=== PATIENT | male | born 1935 | race Caucasian/White ===

== ENCOUNTER 2018-09-15 20:19 | Inpatient (IN) | payer MEDICARE ==
[~2018-09-15] VITALS: Ht 177.8 cm; Wt 97.5 kg
--- NOTE | ~2018-09-15 | EKG ---
[place], [place] ELECTROCARDIOGRAM REPORT NAME: MAHESH PFEIFFER UNIT #: [id number] ROOM: 515 DOCTOR: CLAUDETTEANY DRAFT REPORT BIRTHDATE: [birth year] [facility] Test Date: 2018-09-15 Test Time: 21:09:06 Pat Name: MAHESH PFEIFFER Department: Room: [facility] Gender: M Service Mechanic: Melania Garcia : 1935 Requested By: EZRA NOLASCO Order Number: [id number] Reading MD: Nas Sanchez MD Measurements Intervals [place] Rate: 80 P: 47 OR: 159 QRS: -45 QRSD: 115 T: 53 QT: 456 QTc: 527 Interpretive Statements Sinus rhythm Incomplete right bundle branch block Electronically Signed On 09-16-2018 7:20:55 PST by Nas Sanchez MD CM:EKGRPT:ELECTROCARDIOGRAM REPORT [id number] EZRA NOLASCO MD EPIPHANY DRAFT REPORT EZRA NOLASCO MD
[2018-09-15 20:20] VITALS: BP 133/70
[2018-09-15] MEDS ORDERED: ASPIRIN CHEWABL81 MG PO (20:21)
[2018-09-15] MEDS ORDERED: TENORMIN100 MG PO (20:22)
[2018-09-15] MEDS ORDERED: PACERONE200 MG PO (20:22)
[2018-09-15] MEDS ORDERED: GLUCOPHAGE500 M1 PO (20:24)
[2018-09-15] MEDS ORDERED: MULTIVITAMINS1 EAC5 PO (20:25)
[2018-09-15] MEDS ORDERED: CYMBALTA60 MG PO (20:26)
[2018-09-15] MEDS ORDERED: REQUIP2 MG PO (20:26)
[2018-09-15] MEDS ORDERED: ALENDRONATE SOD70 M1 PO (20:27)
[2018-09-15 21:07] VITALS: BP 133/67
[2018-09-15 21:16] LABS: BASO % 0.2 % (0.0-1.0); HEMATOCRIT 44.1 % (42.0-52.0); HEMOGLOBIN 14.9 g/dl (14.0-18.0); LYMPH # 0.4 10*3/uL (1.3-4.4); LYMPH % 3.1 % (27.0-41.0); MEAN CELL VOLUME 90.4 fl (80.0-94.0); MEAN CORPUSCULAR HGB 30.5 pg (27.0-31.0); MEAN CORPUSCULAR HGB CONC 33.8 g/dl (33.0-37.0); MEAN PLATELET VOLUME 11.1 fl (9.6-12.3); MONO # 0.9 10*3/uL (0.1-1.0); MONO % 6.7 % (3.0-9.0); NEUT # 11.3 10*3/uL (2.3-7.9); NEUT % 89.1 % (47.0-73.0); PLATELET COUNT AUTOMATED 360 10*3/uL (130-400); RED BLOOD COUNT 4.88 10*6/uL (4.50-5.90); RED CELL DISTRI WIDTH 14.5 % (0-14.5); WHITE BLOOD COUNT 12.7 10*3/uL (4.8-10.8)
[2018-09-15 21:25] LABS: ACT PARTIAL THROMBO TIME 25.6 SECONDS (20.8-31.5); INTERNATIONAL NORM RATIO 1.1 (2.0-3.5)
[2018-09-15 21:32] LABS: ALBUMIN 3.7 gm/dl (3.1-4.5); ALKALINE PHOSPHATASE 90 U/L (45-117); BUN 25 mg/dl (7-24); CHLORIDE 106 mmol/L (98-107); LIPASE 138 U/L (73-393); POTASSIUM 4.4 mmol/L (3.5-5.1); SGOT/AST 48 IU/L (3-35); SGPT/ALT 31 U/L (12-78); SODIUM 139 mmol/L (136-145); TOTAL PROTEIN 7.7 gm/dL (6.4-8.2)
[2018-09-15 21:35] LABS: TROPONIN I < 0.015 ng/ml (<0.045)
[2018-09-15 22:14] VITALS: BP 129/71
--- NOTE | 2018-09-15 22:17 | NUR ---
PATIENT STATES THAT HE REMAINS UNABLE TO PROVIDE A URINE SAMPLE AT THIS TIME
--- NOTE | 2018-09-15 23:14 | NUR ---
PT TO CAT SCAN AT THIS TIME
[2018-09-15 23:45] VITALS: BP 134/75
[2018-09-16] VITALS (7 sets, daily range): BP systolic 98–177; BP diastolic 50–84
--- NOTE | 2018-09-16 00:18 | NUR ---
A 83, admitted to , under the services of LYNDA Vázquez DO with a diagnosis of GASTROENTERITIS, DEHYDRATION. Chief complaint is NAUSEA/VOMITING. Patient arrived via bed from ER. Monitor applied. Initial assessment completed. Vital signs taken and recorded. LYNDA VÁZQUEZ DO notified of admission to the unit. Orders received. See assessment for past medical history, medications and allergies. Patient and/or family oriented to unit. [facility] visitation policy reviewed. Clothing/patient valuable form completed. WARD BURKS
[2018-09-16] MEDS ORDERED: LIPITOR40 MG PO (01:58)
--- NOTE | 2018-09-16 05:38 | NUR ---
PT RESTING IN BED, RESPIRATIONS EASY AND UNLABORED ON ROOM AIR. NO S/S OF DISTRESS NOTED. PT DENIES NAUSEA/VOMITING/DIARRHEA AT THIS TIME. WILL CONTINUE TO MONITOR. SAFETY MEASURES IN PLACE. CALL LIGHT IN REACH.
[2018-09-16 06:53] LABS: BASO % 0.2 % (0.0-1.0); EOS % 0.4 % (1.0-4.0); HEMATOCRIT 38.6 % (42.0-52.0); LYMPH # 1.3 10*3/uL (1.3-4.4); LYMPH % 15.3 % (27.0-41.0); MEAN CELL VOLUME 92.3 fl (80.0-94.0); MEAN CORPUSCULAR HGB 29.7 pg (27.0-31.0); MEAN CORPUSCULAR HGB CONC 32.1 g/dl (33.0-37.0); MEAN PLATELET VOLUME 9.9 fl (9.6-12.3); MONO % 11.9 % (3.0-9.0); NEUT % 71.6 % (47.0-73.0); PLATELET COUNT AUTOMATED 252 10*3/uL (130-400); RED BLOOD COUNT 4.18 10*6/uL (4.50-5.90); RED CELL DISTRI WIDTH 14.5 % (0-14.5); WHITE BLOOD COUNT 8.4 10*3/uL (4.8-10.8)
[2018-09-16 07:02] LABS: HEMOGLOBIN 12.4 g/dl (14.0-18.0)
[2018-09-16 07:09] LABS: BUN 26 mg/dl (7-24); CHLORIDE 109 mmol/L (98-107); CHOLESTEROL 112 mg/dL (<200); CREATININE 0.95 mg/dL (0.70-1.30); FREE T4 1.38 ng/dl (0.76-1.46); HDL CHOLESTEROL 40 mg/dl (40-60); LDL CHOLESTEROL 55 mg/dL (9-159); PHOSPHOROUS 3.2 mg/dL (2.5-4.9); SODIUM 141 mmol/L (136-145); TRIGLYCERIDES 87 mg/dl (<150); VLDL CHOLESTEROL 17 mg/dL (6-40)
[2018-09-16 07:27] LABS: POTASSIUM 3.3 mmol/L (3.5-5.1); THYROID STIM HORMONE (HS) 0.657 uIU/ml (0.358-4.75)
[2018-09-16 08:48] LABS: VITAMIN D, 25-HYDROXY 38.2 ng/mL (30-100)
--- NOTE | 2018-09-16 10:59 | NUR ---
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 Patient states lives at [facility] with [facility]. There are NO steps in the home. Physician: MILKA Pharmacy: Home health services: NONE Patient's level of ADLs: MINIMAL ASSIST Patient has working utilities: YES DME: NONE Follow-up physician's appointment after d/c: WILL BE MADE BY HOSPITALIST NURSE DIRECTOR ON DISCHARGE Does patient want to access PORTAL?: NO Discharge plan PT LIVES IN [facility] AT [facility]., HAS A LIFELINE. PT AND DAUGHTER STATE PT DOES WELL WITH ADLS AND EVEN COOKS FOR HIMSELF SOMETIMES AND GOES TO DINING ROOM OTHER TIMES. PLANS ARE TO RETURN ON DISCHARGE. DENIES ANY NEEDS AT THIS TIME. WILL CONTINUE TO FOLLOW. [facility]
[2018-09-16 18:41] LABS: BILIRUBIN NEGATIVE (NEGATIVE); BLOOD NEGATIVE (NEGATIVE); CLARITY CLEAR (CLEAR); COLOR YELLOW (YELLOW); GLUCOSE NEGATIVE (NEGATIVE); KETONE NEGATIVE (NEGATIVE); LEUKO ESTERASE NEGATIVE (NEGATIVE); NITRITE NEGATIVE (NEGATIVE); UROBILINOGEN 0.2 E.U./dl (0.2-1.0)
--- NOTE | 2018-09-16 18:43 | NUR ---
PT RESTING IN BED, NO DISTRESS NOTED FAMILY AT BEDSIDE WILL MONITOR
[2018-09-16 18:51] LABS: BACTERIA TRACE; EPITHELIAL CELLS 0-2; MUCOUS TRACE; RBC 0-2 rbc/hpf (0-2)
--- NOTE | 2018-09-16 20:00 | NUR ---
PATIENT IS RESTING IN BED WITH EASY AND REGULAR RESPERS ON ROOM AIR. ASSESSMENT IS COMPLETE AND BSG CHECKED WITH A RESULT OF 89. PATIENT TOLERATED WELL, AND HAS NO C/O OR S/S OF DISTRESS NOTED. BED IS LOW, LOCKED, ALARMED, AND CALL LIGHT IS WITHIN REACH. SEE SHIFT ASSESSMENT.
[2018-09-17] VITALS: BP 170/86
[2018-09-17 05:25] VITALS: BP 180/90
--- NOTE | 2018-09-17 05:30 | NUR ---
CALLED DR. GARZA PERTAINING TO PT'S ELEVATED BP. DR. GARZA TO PUT ORDER IN FOR BP MEDICATION FOR PATIENT.
--- NOTE | 2018-09-17 06:00 | NUR ---
MEDICATED WITH APRESOLINE SLOW IV PUSH PER M.D. ORDERS FOR ELEVATED BP. PT. VOICES NO C/O AT THIS TIME. ASYMPTOMATIC. CALL LIGHT WITHIN REACH.
[2018-09-17 07:15] LABS: CHLORIDE 107 mmol/L (98-107); POTASSIUM 3.8 mmol/L (3.5-5.1); SODIUM 140 mmol/L (136-145)
[2018-09-17 07:26] LABS: CREATININE 0.74 mg/dL (0.70-1.30)
[2018-09-17 07:28] LABS: BUN 14 mg/dl (7-24)
[2018-09-17 08:00] VITALS: BP 167/89
[2018-09-17] MEDS ORDERED: LISINOPRIL5 MG PO (10:24)
--- NOTE | 2018-09-17 11:35 | NUR ---
Discharge instructions reviewed with patient/family. Patient receptive and verbalizes understanding. Follow-up care arranged. Written instructions given to patient/family. EORS DINH
[2018-12-11] MEDS ORDERED: EFFEXOR XR75 M1 PO (03:24)
[2018-12-11] MEDS ORDERED: VITAMIN B121000 MC1 PO (03:24)
[2019-02-21] MEDS ORDERED: DONEPEZIL HYDROC5 MG PO (18:31)
[2019-02-21] MEDS ORDERED: LOPRESSOR25 MG PO (18:36)
[2019-02-21] MEDS ORDERED: [UNRECOGNIZED DRUG - CODE] PO (18:38)
[2019-02-22] MEDS ORDERED: CYMBALTA60 MG PO (08:50)
[2019-02-22] MEDS ORDERED: REQUIP XL2 MG PO (08:53)
[2019-02-22] MEDS ORDERED: TENORMIN100 MG PO (08:59)
[2019-02-25] MEDS ORDERED: SINEMET 25-1001 EACH PO (12:25)
[2019-02-25] MEDS ORDERED: EFFEXOR XR37.5 M1 PO (12:25)
[2019-02-25] MEDS ORDERED: WALKER (12:25)
[2019-02-25] MEDS ORDERED: METOPROLOL TART50 M1 PO (12:25)
== END 2018-09-17 11:34 | disposition home or self-care (01) | DRG 872 ==
LOC: ED 20:19 → 5E 22:57 → EDHOLD 22:57 → 5E 23:27
PROVIDERS: Emergency Medicine Emergency Medical Services; Internal Medicine; Student in an Organized Health Care Education/Training Program; ADMIT Internal Medicine
DX: A41.9 Sepsis, unspecified organism (principal); K52.9 Noninfective gastroenteritis and colitis, unspecified; E86.0 Dehydration; R06.82 Tachypnea, not elsewhere classified; E11.65 Type 2 diabetes mellitus with hyperglycemia; I48.0 Paroxysmal atrial fibrillation; I10 Essential (primary) hypertension; I95.1 Orthostatic hypotension; R29.6 Repeated falls; Z88.1 Allergy status to other antibiotic agents; Z95.0 Presence of cardiac pacemaker; Z79.899 Other long term (current) drug therapy; Z79.82 Long term (current) use of aspirin

== ENCOUNTER → 2018-09-29 | Outpatient (CLI) | payer MEDICARE ==
[~2018-09-29] MED LIST: ALENDRONATE SOD70 M1 PO; ASPIRIN CHEWABL81 MG PO; CYMBALTA60 MG PO; GLUCOPHAGE500 M1 PO; LIPITOR40 MG PO; LISINOPRIL5 MG PO; MULTIVITAMINS1 EAC5 PO; PACERONE200 MG PO; REQUIP1 M1 PO; TENORMIN100 MG PO
[2018-09-29 13:44] LABS: CREATININE 0.93 mg/dL (0.70-1.30)
== END | disposition home or self-care (01) ==
LOC: LAB 13:00 → CT 13:00
PROVIDERS: Family Medicine
DX: N28.1 Cyst of kidney, acquired (principal); K57.30 Diverticulosis of large intestine without perforation or abscess without bleeding; K83.8 Other specified diseases of biliary tract; E11.9 Type 2 diabetes mellitus without complications

== ENCOUNTER 2018-10-18 14:16 | Emergency (ER) | payer MEDICARE ==
[~2018-10-18] VITALS: Ht 177.8 cm; Wt 98.4 kg
--- NOTE | ~2018-10-18 | EKG ---
[place], [place] ELECTROCARDIOGRAM REPORT NAME: MAHESH PFEIFFER UNIT #: [id number] ROOM: DOCTOR: EPIPHANY DRAFT REPORT BIRTHDATE: [address] [facility] Test Date: 2018-10-18 Test Time: 14:47:49 Pat Name: MAHESH PFEIFFER Department: Room: Gender: [employer]: Mealnia Garcia : 1935 Requested By: JONATHAN LEGGETT Order Number: [id number] Reading MD: Cari Hernadez MD Measurements Intervals [place] Rate: 62 P: [place]: QRS: -52 QRSD: 106 T: 19 QT: 442 QTc: 449 Interpretive Statements Atrial fibrillation RSR' in V1 or V2, right VCD or RVH Inferior infarct, old Compared to ECG 09/15/2018 21:09:06 Right ventricular hypertrophy now present RSR' in V1 or V2 now present Myocardial infarct finding now present Sinus rhythm no longer present Incomplete right bundle-branch block no longer present Electronically Signed On 10-21-2018 9:42:50 PST by Cari Hernadez MD CM:EKGRPT:ELECTROCARDIOGRAM REPORT [id number] JONATHAN LEGGETT EPIPHANY DRAFT REPORT JONATHAN LEGGETT
[~2018-10-18 14:16] MED LIST changes: -REQUIP1 M1 PO; +REQUIP2 MG PO
[2018-10-18 14:40] LABS: BILIRUBIN NEGATIVE (NEGATIVE); BLOOD NEGATIVE (NEGATIVE); CLARITY CLEAR (CLEAR); COLOR YELLOW (YELLOW); GLUCOSE NEGATIVE (NEGATIVE); KETONE NEGATIVE (NEGATIVE); LEUKO ESTERASE NEGATIVE (NEGATIVE); NITRITE NEGATIVE (NEGATIVE)
[2018-10-18 14:49] LABS: BACTERIA 1+; WBC 0-2 wbc/hpf (0-5)
[2018-10-18 14:55] LABS: HEMATOCRIT 40.9 % (42.0-52.0); HEMOGLOBIN 13.7 g/dl (14.0-18.0); MEAN CELL VOLUME 92.5 fl (80.0-94.0); MEAN CORPUSCULAR HGB CONC 33.5 g/dl (33.0-37.0); MEAN PLATELET VOLUME 9.8 fl (9.6-12.3); PLATELET COUNT AUTOMATED 259 10*3/uL (130-400); RED BLOOD COUNT 4.42 10*6/uL (4.50-5.90); RED CELL DISTRI WIDTH 14.3 % (0-14.5); WHITE BLOOD COUNT 12.2 10*3/uL (4.8-10.8)
[2018-10-18 15:04] LABS: ACT PARTIAL THROMBO TIME 25.7 SECONDS (20.8-31.5)
[2018-10-18 15:16] LABS: PLATELET SUFFICIENCY NORMAL (NORMAL); POLYCHROMASIA SLIGHT; TOTAL CELLS COUNTED 100 #CELLS
[2018-10-18 15:29] LABS: ALBUMIN 3.5 gm/dl (3.1-4.5); ALKALINE PHOSPHATASE 137 U/L (45-117); BUN 10 mg/dl (7-24); CHLORIDE 104 mmol/L (98-107); CREATININE 0.81 mg/dL (0.70-1.30); LIPASE 204 U/L (73-393); POTASSIUM 3.8 mmol/L (3.5-5.1); SGOT/AST 15 IU/L (3-35); SGPT/ALT 29 U/L (12-78); SODIUM 137 mmol/L (136-145); TOTAL PROTEIN 7.4 gm/dL (6.4-8.2)
[2018-10-18 15:30] LABS: TROPONIN I < 0.015 ng/ml (<0.045)
[2018-12-11] MEDS ORDERED: EFFEXOR XR75 M1 PO (03:24)
[2018-12-11] MEDS ORDERED: VITAMIN B121000 MC1 PO (03:24)
[2019-02-21] MEDS ORDERED: DONEPEZIL HYDROC5 MG PO (18:31)
[2019-02-21] MEDS ORDERED: LOPRESSOR25 MG PO (18:36)
[2019-02-21] MEDS ORDERED: [UNRECOGNIZED DRUG - CODE] PO (18:38)
[2019-02-22] MEDS ORDERED: CYMBALTA60 MG PO (08:50)
[2019-02-22] MEDS ORDERED: REQUIP XL2 MG PO (08:53)
[2019-02-22] MEDS ORDERED: TENORMIN100 MG PO (08:59)
[2019-02-25] MEDS ORDERED: SINEMET 25-1001 EACH PO (12:25)
[2019-02-25] MEDS ORDERED: WALKER (12:25)
[2019-02-25] MEDS ORDERED: METOPROLOL TART50 M1 PO (12:25)
[2019-02-25] MEDS ORDERED: EFFEXOR XR37.5 M1 PO (12:25)
== END 2018-10-18 16:03 | disposition home or self-care (01) ==
LOC: ED 14:16
PROVIDERS: Nurse Practitioner Family
DX: M54.5 Low back pain (principal); J06.9 Acute upper respiratory infection, unspecified; Z95.0 Presence of cardiac pacemaker; I48.91 Unspecified atrial fibrillation; E11.9 Type 2 diabetes mellitus without complications; I10 Essential (primary) hypertension; Z88.1 Allergy status to other antibiotic agents; Z79.84 Long term (current) use of oral hypoglycemic drugs; Z79.899 Other long term (current) drug therapy; Z79.82 Long term (current) use of aspirin

== ENCOUNTER 2019-02-04 14:44 | Emergency (ER) | payer MEDICARE ==
[~2019-02-04] VITALS: Wt 92.5 kg
--- NOTE | ~2019-02-04 | EKG ---
[place], [place] ELECTROCARDIOGRAM REPORT NAME: MAHESH PFEIFFER UNIT #: [id number] ROOM: DOCTOR: EPIPHANY DRAFT REPORT BIRTHDATE: [birth year] [facility] Test Date: 2019-02-04 Test Time: 15:26:43 Pat Name: MAHESH PFEIFFER Department: Room: Gender: Exterior Designer: : 1935 Requested By: CODY SCHWAB DNP Order Number: [id number] Reading MD: Mechelle Luu Measurements Intervals [place] Rate: 60 P: [place]: 157 QRS: -46 QRSD: 112 T: 3 QT: 475 QTc: 475 Interpretive Statements Atrial-paced rhythm Left anterior fascicular block Nonspecific T abnormalities, anterior leads Compared to ECG 12/12/2018 01:25:37 T-wave abnormality now present Sinus tachycardia no longer present Electronically Signed On 02-05-2019 12:51:51 PDT by Mechelle Luu CM:EKGRPT:ELECTROCARDIOGRAM REPORT [id number] CODY SCHWAB DNP EPIPHANY DRAFT REPORT CODY SCHWAB DNP
[~2019-02-04 14:44] MED LIST changes: +EFFEXOR XR75 M1 PO; +VITAMIN B121000 MC1 PO
[2019-02-04 15:24] LABS: HEMATOCRIT 41.1 % (42.0-52.0); HEMOGLOBIN 13.6 g/dl (14.0-18.0); MEAN CELL VOLUME 94.5 fl (80.0-94.0); MEAN CORPUSCULAR HGB 31.3 pg (27.0-31.0); MEAN CORPUSCULAR HGB CONC 33.1 g/dl (33.0-37.0); MEAN PLATELET VOLUME 9.9 fl (9.6-12.3); PLATELET COUNT AUTOMATED 286 10*3/uL (130-400); RED BLOOD COUNT 4.35 10*6/uL (4.50-5.90); RED CELL DISTRI WIDTH 14.7 % (0-14.5); WHITE BLOOD COUNT 7.8 10*3/uL (4.8-10.8)
[2019-02-04 15:42] LABS: ALBUMIN 3.5 gm/dl (3.1-4.5); ALKALINE PHOSPHATASE 115 U/L (45-117); BUN 7 mg/dl (7-24); CHLORIDE 101 mmol/L (98-107); LIPASE 246 U/L (73-393); POTASSIUM 4.3 mmol/L (3.5-5.1); SGOT/AST 18 IU/L (3-35); SGPT/ALT 31 U/L (12-78); SODIUM 138 mmol/L (136-145); TOTAL PROTEIN 7.1 gm/dL (6.4-8.2)
[2019-02-04 15:43] LABS: TROPONIN I < 0.015 ng/ml (<0.045)
[2019-02-04 15:48] LABS: ATYPICAL LYMPHS 3 % (0-0); BASOPHILS 1 % (0-1); TOTAL CELLS COUNTED 100 #CELLS
[2019-02-04 15:49] LABS: PLATELET SUFFICIENCY NORMAL (NORMAL)
[2019-02-04 15:56] LABS: ACT PARTIAL THROMBO TIME 23.4 SECONDS (20.0-32.1); INTERNATIONAL NORM RATIO 0.9 (2.0-3.5)
[2019-02-04 16:03] LABS: BILIRUBIN NEGATIVE (NEGATIVE); BLOOD 1+ (NEGATIVE); CLARITY CLEAR (CLEAR); COLOR YELLOW (YELLOW); GLUCOSE NEGATIVE (NEGATIVE); KETONE NEGATIVE (NEGATIVE); LEUKO ESTERASE NEGATIVE (NEGATIVE); NITRITE NEGATIVE (NEGATIVE); SPECIFIC GRAVITY <= 1.005 (1.005-1.030); UROBILINOGEN 0.2 E.U./dl (0.2-1.0)
[2019-02-04 16:11] LABS: BACTERIA TRACE; EPITHELIAL CELLS 0-2; WBC 0-2 wbc/hpf (0-5)
[2019-02-21] MEDS ORDERED: DONEPEZIL HYDROC5 MG PO (18:31)
[2019-02-21] MEDS ORDERED: LOPRESSOR25 MG PO (18:36)
[2019-02-21] MEDS ORDERED: [UNRECOGNIZED DRUG - CODE] PO (18:38)
[2019-02-22] MEDS ORDERED: CYMBALTA60 MG PO (08:50)
[2019-02-22] MEDS ORDERED: REQUIP XL2 MG PO (08:53)
[2019-02-22] MEDS ORDERED: TENORMIN100 MG PO (08:59)
[2019-02-25] MEDS ORDERED: WALKER (12:25)
[2019-02-25] MEDS ORDERED: EFFEXOR XR37.5 M1 PO (12:25)
[2019-02-25] MEDS ORDERED: SINEMET 25-1001 EACH PO (12:25)
[2019-02-25] MEDS ORDERED: METOPROLOL TART50 M1 PO (12:25)
== END 2019-02-04 20:20 | disposition other institution (70) ==
LOC: ED 14:44
PROVIDERS: Nurse Practitioner Family
DX: S09.90XA Unspecified injury of head, initial encounter (principal); R42 Dizziness and giddiness; R35.0 Frequency of micturition; I48.91 Unspecified atrial fibrillation; I10 Essential (primary) hypertension; E11.9 Type 2 diabetes mellitus without complications; Z95.0 Presence of cardiac pacemaker; Z88.1 Allergy status to other antibiotic agents; Z79.899 Other long term (current) drug therapy; Z79.82 Long term (current) use of aspirin; W18.39XA Other fall on same level, initial encounter; Y93.89 Activity, other specified; Y92.89 Other specified places as the place of occurrence of the external cause; Y99.8 Other external cause status

== ENCOUNTER 2019-09-18 06:43 | Emergency (ER) | payer MEDICARE ==
[~2019-09-18] VITALS: Ht 182.8 cm; Wt 97.5 kg
[~2019-09-18 06:43] MED LIST changes: +DONEPEZIL HYDROC5 MG PO; +EFFEXOR XR37.5 M1 PO; +LOPRESSOR25 MG PO; +METOPROLOL TART50 M1 PO; +REQUIP XL2 MG PO; +SINEMET 25-1001 EACH PO; +WALKER; +[UNRECOGNIZED DRUG - CODE] PO
== END 2019-09-18 07:15 | disposition other institution (70) ==
LOC: ED 06:43
DX: S01.01XA Laceration without foreign body of scalp, initial encounter (principal); I10 Essential (primary) hypertension; E11.9 Type 2 diabetes mellitus without complications; I48.91 Unspecified atrial fibrillation; Z90.49 Acquired absence of other specified parts of digestive tract; Z95.0 Presence of cardiac pacemaker; Z87.891 Personal history of nicotine dependence; Z88.1 Allergy status to other antibiotic agents; Z79.899 Other long term (current) drug therapy; Z79.82 Long term (current) use of aspirin; W18.2XXA Fall in (into) shower or empty bathtub, initial encounter; Y93.89 Activity, other specified; Y92.091 Bathroom in other non-institutional residence as the place of occurrence of the external cause; Y99.8 Other external cause status

== ENCOUNTER 2019-12-14 19:27 | Emergency (ER) | payer MEDICARE ==
[~2019-12-14] VITALS: Ht 177.8 cm; Wt 101.6 kg
[2019-12-14 19:49] LABS: BASO % 0.3 % (0.0-1.0); EOS # 0.1 10*3/uL (0.0-0.4); EOS % 0.7 % (1.0-4.0); HEMATOCRIT 39.6 % (42.0-52.0); LYMPH # 2.1 10*3/uL (1.3-4.4); LYMPH % 27.4 % (27.0-41.0); MEAN CORPUSCULAR HGB 31.2 pg (27.0-31.0); MEAN CORPUSCULAR HGB CONC 33.6 g/dl (33.0-37.0); MONO # 0.8 10*3/uL (0.1-1.0); MONO % 10.1 % (3.0-9.0); NEUT # 4.6 10*3/uL (2.3-7.9); NEUT % 60.6 % (47.0-73.0); PLATELET COUNT AUTOMATED 273 10*3/uL (130-400); RED BLOOD COUNT 4.26 10*6/uL (4.50-5.90); RED CELL DISTRI WIDTH 13.8 % (0-14.5); WHITE BLOOD COUNT 7.5 10*3/uL (4.8-10.8)
[2019-12-14 19:59] LABS: ACT PARTIAL THROMBO TIME 26.7 SECONDS (20.0-32.1); INTERNATIONAL NORM RATIO 0.9 (2.0-3.5)
[2019-12-14 20:21] LABS: BACTERIA TRACE; BILIRUBIN NEGATIVE (NEGATIVE); BLOOD NEGATIVE (NEGATIVE); CLARITY SL CLOUDY (CLEAR); COLOR YELLOW (YELLOW); GLUCOSE NEGATIVE (NEGATIVE); KETONE NEGATIVE (NEGATIVE); LEUKO ESTERASE NEGATIVE (NEGATIVE); NITRITE NEGATIVE (NEGATIVE); RBC 0-2 rbc/hpf (0-2); SPECIFIC GRAVITY 1.015 (1.005-1.030); UROBILINOGEN 0.2 E.U./dl (0.2-1.0); WBC 0-2 wbc/hpf (0-5)
[2019-12-14 20:41] LABS: ALBUMIN 3.6 gm/dl (3.1-4.5); ALKALINE PHOSPHATASE 68 U/L (45-117); BUN 11 mg/dl (7-24); CHLORIDE 104 mmol/L (98-107); CREATININE 0.83 mg/dL (0.70-1.30); LIPASE 262 U/L (73-393); POTASSIUM 3.8 mmol/L (3.5-5.1); SGOT/AST 17 IU/L (3-35); SGPT/ALT 15 U/L (12-78); SODIUM 137 mmol/L (136-145); TOTAL PROTEIN 6.6 gm/dL (6.4-8.2)
[2019-12-14] MEDS ORDERED: CEPHALEXIN500 M1 PO (22:12)
== END 2019-12-14 23:21 | disposition other institution (70) ==
LOC: ED 19:27
PROVIDERS: Nurse Practitioner Family
DX: N39.0 Urinary tract infection, site not specified (principal); I48.91 Unspecified atrial fibrillation; E11.9 Type 2 diabetes mellitus without complications; I10 Essential (primary) hypertension; E78.5 Hyperlipidemia, unspecified; Z88.8 Allergy status to other drugs, medicaments and biological substances; Z79.899 Other long term (current) drug therapy; Z79.84 Long term (current) use of oral hypoglycemic drugs; Z90.49 Acquired absence of other specified parts of digestive tract

== ENCOUNTER 2020-01-27 08:31 | Observation (INO) | payer MEDICARE ==
[~2020-01-27] VITALS: Ht 177.8 cm; Wt 105.6 kg
[~2020-01-27 08:31] MED LIST changes: +CEPHALEXIN500 M1 PO
[2020-01-27 08:43] VITALS: BP 111/49
[2020-01-27 08:49] LABS: BASO % 0.4 % (0.0-1.0); EOS # 0.2 10*3/uL (0.0-0.4); EOS % 2.3 % (1.0-4.0); HEMATOCRIT 37.6 % (42.0-52.0); LYMPH # 2.3 10*3/uL (1.3-4.4); LYMPH % 32.2 % (27.0-41.0); MEAN CELL VOLUME 95.7 fl (80.0-94.0); MEAN CORPUSCULAR HGB 31.8 pg (27.0-31.0); MEAN CORPUSCULAR HGB CONC 33.2 g/dl (33.0-37.0); MEAN PLATELET VOLUME 9.9 fl (9.6-12.3); MONO # 0.9 10*3/uL (0.1-1.0); MONO % 12.1 % (3.0-9.0); NEUT # 3.7 10*3/uL (2.3-7.9); NEUT % 52.2 % (47.0-73.0); PLATELET COUNT AUTOMATED 249 10*3/uL (130-400); RED BLOOD COUNT 3.93 10*6/uL (4.50-5.90); RED CELL DISTRI WIDTH 13.7 % (0-14.5); WHITE BLOOD COUNT 7.1 10*3/uL (4.8-10.8)
[2020-01-27 08:59] LABS: ACT PARTIAL THROMBO TIME 26.2 SECONDS (20.0-32.1); INTERNATIONAL NORM RATIO 0.9 (2.0-3.5)
[2020-01-27 09:08] LABS: ALBUMIN 3.6 gm/dl (3.1-4.5); ALKALINE PHOSPHATASE 73 U/L (45-117); BUN 14 mg/dl (7-24); CHLORIDE 102 mmol/L (98-107); CREATININE 0.98 mg/dL (0.70-1.30); POTASSIUM 3.6 mmol/L (3.5-5.1); SGOT/AST 18 IU/L (3-35); SGPT/ALT 25 U/L (12-78); SODIUM 138 mmol/L (136-145)
[2020-01-27 09:09] LABS: TROPONIN I < 0.015 ng/ml (<0.045)
[2020-01-27 09:30] VITALS: BP 124/67
[2020-01-27 10:29] VITALS: BP 132/64
[2020-01-27 10:50] VITALS: BP 148/64
[2020-01-27 12:00] VITALS: BP 140/60
[2020-01-27] MEDS ORDERED: PAIN RELIEVER650 MG PO (12:19)
[2020-01-27] MEDS ORDERED: ARICEPT10 M1 PO ×2 (12:20→12:43)
[2020-01-27] MEDS ORDERED: LIPITOR20 MG PO (12:21)
[2020-01-27] MEDS ORDERED: BENADRYL ALLERG25 M5 PO (12:22)
[2020-01-27] MEDS ORDERED: COLACE100 MG PO (12:23)
[2020-01-27] MEDS ORDERED: BENADRYL ITCH103 ML T (12:23)
[2020-01-27] MEDS ORDERED: CYMBALTA60 MG PO (12:24)
[2020-01-27] MEDS ORDERED: DULCOLAX10 M1 R (12:25)
[2020-01-27] MEDS ORDERED: ICY HOT NO MESS73 ML T (12:27)
[2020-01-27] MEDS ORDERED: MELATONIN5 M7 PO (12:28)
[2020-01-27] MEDS ORDERED: LIDODERM1 EACH T (12:28)
[2020-01-27] MEDS ORDERED: LOPRESSOR50 M1 PO (12:30)
[2020-01-27] MEDS ORDERED: MIRALAX17 GM PO (12:31)
[2020-01-27] MEDS ORDERED: MILK OF MA400 MG/5 M PO (12:31)
[2020-01-27] MEDS ORDERED: MOTRIN IB200 M1 PO (12:32)
[2020-01-27] MEDS ORDERED: NORVASC5 MG PO (12:32)
[2020-01-27] MEDS ORDERED: REQUIP 1 MG PO (12:36)
[2020-01-27] MEDS ORDERED: Sinemet Cr 25-11 TAB PO (12:37)
[2020-01-27] MEDS ORDERED: SUDAFED 12HR120 MG PO (12:39)
[2020-01-27] MEDS ORDERED: SINEMET 25-1001 EACH PO (12:46)
[2020-01-27 16:00] VITALS: BP 145/71
== END 2020-01-27 16:51 | disposition other institution (70) ==
LOC: ED 08:31 → EDHOLD 09:26 → 4E 09:26 → EDHOLD 09:26 → 4E 09:58
PROVIDERS: Emergency Medicine; ADMIT Internal Medicine
DX: R07.89 Other chest pain (principal); R00.0 Tachycardia, unspecified; D53.9 Nutritional anemia, unspecified; I48.91 Unspecified atrial fibrillation; E11.65 Type 2 diabetes mellitus with hyperglycemia; I10 Essential (primary) hypertension; E78.5 Hyperlipidemia, unspecified; Z68.33 Body mass index [BMI] 33.0-33.9, adult

== ENCOUNTER 2020-06-21 13:56 | Emergency (ER) | payer MEDICARE ==
[~2020-06-21] VITALS: Ht 175.2 cm
[~2020-06-21 13:56] MED LIST changes: +ARICEPT10 M1 PO; +BENADRYL ALLERG25 M5 PO; +BENADRYL ITCH103 ML T; +COLACE100 MG PO; +DULCOLAX10 M1 R; +ICY HOT NO MESS73 ML T; +LIDODERM1 EACH T; +LIPITOR20 MG PO; +LOPRESSOR50 M1 PO; +MELATONIN5 M7 PO; +MILK OF MA400 MG/5 M PO; +MIRALAX17 GM PO; +MOTRIN IB200 M1 PO; +NORVASC5 MG PO; +PAIN RELIEVER650 MG PO; +REQUIP 1 MG PO; +SUDAFED 12HR120 MG PO; +Sinemet Cr 25-11 TAB PO
[2020-06-21 14:37] LABS: BASO % 0.4 % (0.0-1.0); EOS # 0.1 10*3/uL (0.0-0.4); EOS % 1.8 % (1.0-4.0); HEMATOCRIT 39.4 % (42.0-52.0); LYMPH # 2.1 10*3/uL (1.3-4.4); LYMPH % 29.1 % (27.0-41.0); MEAN CELL VOLUME 93.8 fl (80.0-94.0); MEAN PLATELET VOLUME 9.8 fl (9.6-12.3); MONO % 13.8 % (3.0-9.0); NEUT # 3.8 10*3/uL (2.3-7.9); NEUT % 53.8 % (47.0-73.0); PLATELET COUNT AUTOMATED 252 10*3/uL (130-400); RED CELL DISTRI WIDTH 14.2 % (0-14.5); WHITE BLOOD COUNT 7.1 10*3/uL (4.8-10.8)
[2020-06-21 14:51] LABS: BILIRUBIN Negative (Negative); BLOOD Negative (Negative); CLARITY Clear (Clear); COLOR Dark Yellow (Yellow); GLUCOSE Negative (Negative); KETONE 1+ (Negative); LEUKO ESTERASE Trace (Negative); NITRITE Negative (Negative); SPECIFIC GRAVITY >= 1.030 (1.001-1.030)
[2020-06-21 14:57] LABS: ALBUMIN 3.6 gm/dl (3.1-4.5); ALKALINE PHOSPHATASE 78 U/L (45-117); BUN 18 mg/dl (7-24); CHLORIDE 106 mmol/L (98-107); CREATININE 1.18 mg/dL (0.70-1.30); POTASSIUM 4.1 mmol/L (3.5-5.1); SGOT/AST 18 IU/L (3-35); SGPT/ALT 10 U/L (12-78); SODIUM 139 mmol/L (136-145); TOTAL PROTEIN 6.8 gm/dL (6.4-8.2)
[2020-06-21 15:05] LABS: EPITHELIAL CELLS 0-2; WBC 0-2 wbc/hpf (0-5)
== END 2020-06-21 18:36 | disposition home or self-care (01) ==
LOC: ED 13:56
PROVIDERS: Emergency Medicine
DX: G20 Parkinson's disease (principal); I10 Essential (primary) hypertension; E11.9 Type 2 diabetes mellitus without complications; I48.91 Unspecified atrial fibrillation; Z88.8 Allergy status to other drugs, medicaments and biological substances; Z79.899 Other long term (current) drug therapy; Z79.2 Long term (current) use of antibiotics; Z90.49 Acquired absence of other specified parts of digestive tract

== ENCOUNTER 2021-08-24 04:35 | Emergency (ER) | payer MEDICARE ==
[~2021-08-24] VITALS: Wt 116.1 kg
[2021-08-24 04:49] LABS: BASO % 0.1 % (0.0-1.0); EOS # 0.2 10*3/uL (0.0-0.4); EOS % 2.3 % (1.0-4.0); HEMATOCRIT 36.8 % (42.0-52.0); LYMPH # 2.6 10*3/uL (1.3-4.4); LYMPH % 32.9 % (27.0-41.0); MEAN CELL VOLUME 94.4 fl (80.0-94.0); MEAN CORPUSCULAR HGB 30.5 pg (27.0-31.0); MEAN CORPUSCULAR HGB CONC 32.3 g/dl (33.0-37.0); MEAN PLATELET VOLUME 10.1 fl (9.6-12.3); MONO % 12.7 % (3.0-9.0); NEUT # 4.1 10*3/uL (2.3-7.9); NEUT % 51.2 % (47.0-73.0); PLATELET COUNT AUTOMATED 213 10*3/uL (130-400); RED CELL DISTRI WIDTH 14.1 % (0-14.5); WHITE BLOOD COUNT 7.9 10*3/uL (4.8-10.8)
[2021-08-24 05:02] LABS: ALBUMIN 3.3 gm/dl (3.1-4.5); ALKALINE PHOSPHATASE 95 U/L (45-117); BUN 20 mg/dl (7-24); CHLORIDE 105 mmol/L (98-107); CREATININE 1.31 mg/dL (0.70-1.30); POTASSIUM 4.1 mmol/L (3.5-5.1); SGOT/AST 20 IU/L (3-35); SGPT/ALT 18 U/L (12-78); SODIUM 140 mmol/L (136-145); TOTAL PROTEIN 6.6 gm/dL (6.4-8.2)
== END 2021-08-24 07:41 | disposition home or self-care (01) ==
LOC: ED 04:35
PROVIDERS: Internal Medicine
DX: R07.9 Chest pain, unspecified (principal); D64.9 Anemia, unspecified; Z79.899 Other long term (current) drug therapy; Z87.891 Personal history of nicotine dependence

== ENCOUNTER 2022-02-21 08:27 | Inpatient (IN) | payer MEDICARE ==
[~2022-02-21] VITALS: Ht 177.8 cm; Wt 108.2 kg
[2022-02-21] VITALS (18 sets, daily range): BP systolic 94–123; BP diastolic 51–92
[~2022-02-21 08:27] MED LIST changes: +ELIQUIS5 M1 PO; +FLOMAX0.4 MG PO; +FUROSEMIDE20 M1 PO; +FUROSEMIDE40 MG PO; +GLIPIZIDE2.5 MG PO; +K-TAB10 MEQ PO; +KEPPRA500 MG PO; +METOPROLOL SUCC50 M1 PO
[2022-02-21 08:46] LABS: BASO % 0.4 % (0.0-1.0); EOS # 0.1 10*3/uL (0.0-0.4); EOS % 1.7 % (1.0-4.0); LYMPH % 24.6 % (27.0-41.0); MEAN CELL VOLUME 93.6 fl (80.0-94.0); MEAN CORPUSCULAR HGB 30.5 pg (27.0-31.0); MEAN CORPUSCULAR HGB CONC 32.6 g/dl (33.0-37.0); MEAN PLATELET VOLUME 10.4 fl (9.6-12.3); MONO # 1.2 10*3/uL (0.1-1.0); MONO % 14.3 % (3.0-9.0); NEUT # 4.7 10*3/uL (2.3-7.9); NEUT % 58.3 % (47.0-73.0); PLATELET COUNT AUTOMATED 269 10*3/uL (130-400); RED BLOOD COUNT 4.06 10*6/uL (4.50-5.90); RED CELL DISTRI WIDTH 13.8 % (0-14.5); WHITE BLOOD COUNT 8.1 10*3/uL (4.8-10.8)
[2022-02-21 08:57] LABS: ACT PARTIAL THROMBO TIME 29.4 SECONDS (20.0-32.1)
[2022-02-21 09:01] LABS: ALKALINE PHOSPHATASE 94 U/L (45-117); BUN 14 mg/dl (7-24); CHLORIDE 106 mmol/L (98-107); CREATININE 0.95 mg/dL (0.70-1.30); POTASSIUM 3.9 mmol/L (3.5-5.1); SGOT/AST 18 IU/L (3-35); SGPT/ALT 16 U/L (12-78); SODIUM 140 mmol/L (136-145); TOTAL PROTEIN 6.7 gm/dL (6.4-8.2)
[2022-02-22] VITALS: BP 124/57
[2022-02-22 06:31] LABS: BUN 15 mg/dl (7-24); CHLORIDE 106 mmol/L (98-107); CHOLESTEROL 120 mg/dL (<200); CREATININE 0.94 mg/dL (0.70-1.30); POTASSIUM 3.7 mmol/L (3.5-5.1); SGOT/AST 17 IU/L (3-35); SGPT/ALT 8 U/L (12-78); SODIUM 143 mmol/L (136-145); TOTAL PROTEIN 6.3 gm/dL (6.4-8.2); TRIGLYCERIDES 206 mg/dl (<150)
[2022-02-22 06:32] LABS: ALKALINE PHOSPHATASE 81 U/L (45-117); LDL CHOLESTEROL 43 mg/dL (9-159)
[2022-02-22 06:36] LABS: BASO % 0.3 % (0.0-1.0); EOS # 0.1 10*3/uL (0.0-0.4); EOS % 2.2 % (1.0-4.0); HEMATOCRIT 35.7 % (42.0-52.0); LYMPH # 2.2 10*3/uL (1.3-4.4); LYMPH % 33.9 % (27.0-41.0); MEAN CORPUSCULAR HGB 30.9 pg (27.0-31.0); MEAN CORPUSCULAR HGB CONC 32.2 g/dl (33.0-37.0); MEAN PLATELET VOLUME 10.5 fl (9.6-12.3); MONO # 0.9 10*3/uL (0.1-1.0); MONO % 13.3 % (3.0-9.0); NEUT # 3.2 10*3/uL (2.3-7.9); NEUT % 49.5 % (47.0-73.0); PLATELET COUNT AUTOMATED 248 10*3/uL (130-400); RED BLOOD COUNT 3.72 10*6/uL (4.50-5.90); RED CELL DISTRI WIDTH 14.1 % (0-14.5); WHITE BLOOD COUNT 6.4 10*3/uL (4.8-10.8)
[2022-02-22 08:00] VITALS: BP 146/69
[2022-02-22] MEDS ORDERED: AMIODARONE HYD200 MG PO (09:55)
== END 2022-02-22 10:50 | disposition home or self-care (01) | DRG 309 ==
LOC: ED 08:27 → EDHOLD 12:27 → 5E 13:13
PROVIDERS: Emergency Medicine; Registered Nurse; ADMIT Internal Medicine; ATTEND Internal Medicine
DX: I48.0 Paroxysmal atrial fibrillation (principal); N17.9 Acute kidney failure, unspecified; I50.32 Chronic diastolic (congestive) heart failure; I47.1 Supraventricular tachycardia; R07.89 Other chest pain; I11.0 Hypertensive heart disease with heart failure; G20 Parkinson's disease; E78.2 Mixed hyperlipidemia; E11.65 Type 2 diabetes mellitus with hyperglycemia; D64.9 Anemia, unspecified; F03.90 Unspecified dementia, unspecified severity, without behavioral disturbance, psychotic disturbance, mood disturbance, and anxiety; Z88.1 Allergy status to other antibiotic agents; Z95.0 Presence of cardiac pacemaker; Z90.49 Acquired absence of other specified parts of digestive tract; Z87.891 Personal history of nicotine dependence; Z84.1 Family history of disorders of kidney and ureter; Z81.8 Family history of other mental and behavioral disorders

== ENCOUNTER → 2022-04-28 | Outpatient (CLI) | payer MEDICARE ==
[~2022-04-28] MED LIST changes: +AMIODARONE HYD200 MG PO
== END | disposition home or self-care (01) ==
LOC: CT 12:57
PROVIDERS: ATTEND Urology
DX: N20.0 Calculus of kidney (principal); N40.0 Benign prostatic hyperplasia without lower urinary tract symptoms; K57.32 Diverticulitis of large intestine without perforation or abscess without bleeding; N28.1 Cyst of kidney, acquired

== ENCOUNTER 2022-07-18 00:25 | Emergency (ER) | payer MEDICARE ==
[~2022-07-18] VITALS: Ht 177.8 cm; Wt 90.7 kg
== END 2022-07-18 01:53 | disposition home or self-care (01) ==
LOC: ED 00:25
DX: S00.81XA Abrasion of other part of head, initial encounter (principal); Z88.1 Allergy status to other antibiotic agents; Z79.899 Other long term (current) drug therapy; Z90.89 Acquired absence of other organs; Z90.49 Acquired absence of other specified parts of digestive tract; Z98.890 Other specified postprocedural states; Z87.891 Personal history of nicotine dependence; W18.39XA Other fall on same level, initial encounter; Y93.89 Activity, other specified; Y92.89 Other specified places as the place of occurrence of the external cause; Y99.8 Other external cause status

== ENCOUNTER 2022-10-12 13:41 | Emergency (ER) | payer MEDICARE ==
[~2022-10-12] VITALS: Ht 177.8 cm; Wt 112.5 kg
[2022-10-12 15:50] LABS: BASO % 0.3 % (0.0-1.0); EOS # 0.2 10*3/uL (0.0-0.4); EOS % 2.7 % (1.0-4.0); HEMATOCRIT 39.9 % (42.0-52.0); LYMPH # 1.6 10*3/uL (1.3-4.4); MEAN CELL VOLUME 96.1 fl (80.0-94.0); MEAN CORPUSCULAR HGB 30.1 pg (27.0-31.0); MEAN CORPUSCULAR HGB CONC 31.3 g/dl (33.0-37.0); MEAN PLATELET VOLUME 10.4 fl (9.6-12.3); MONO # 0.9 10*3/uL (0.1-1.0); MONO % 13.6 % (3.0-9.0); NEUT # 3.6 10*3/uL (2.3-7.9); NEUT % 57.4 % (47.0-73.0); PLATELET COUNT AUTOMATED 234 10*3/uL (130-400); RED BLOOD COUNT 4.15 10*6/uL (4.50-5.90); RED CELL DISTRI WIDTH 14.3 % (0-14.5); WHITE BLOOD COUNT 6.3 10*3/uL (4.8-10.8)
[2022-10-12 16:05] LABS: ALKALINE PHOSPHATASE 90 U/L (46-116); BUN 19 mg/dl (9-23); CHLORIDE 102 mmol/L (98-107); POTASSIUM 4.1 mmol/L (3.4-5.1); SGPT/ALT 13 U/L (10-49); TOTAL PROTEIN 6.6 gm/dL (6.0-8.0)
[2022-10-12 16:43] LABS: BILIRUBIN Negative (Negative); BLOOD Negative (Negative); CLARITY Clear (Clear); COLOR Yellow (Yellow); GLUCOSE Negative (Negative); KETONE Negative (Negative); LEUKO ESTERASE Negative (Negative); NITRITE Negative (Negative)
[2022-10-12 16:43] LABS: ABG BASE EXCESS 2.1 mmol/L (-2.0-2.0); ARTERIAL BLOOD GAS PH 7.392 (7.35-7.45); ARTERIAL BLOOD GAS PO2 68.1 (80-90)
[2022-10-12 16:56] LABS: BACTERIA 1+
[2022-10-12 16:57] LABS: RBC 0-2 rbc/hpf (0-2)
== END 2022-10-12 17:27 ==
LOC: ED 13:41
PROVIDERS: Internal Medicine
DX: F03.90 Unspecified dementia, unspecified severity, without behavioral disturbance, psychotic disturbance, mood disturbance, and anxiety (principal); I10 Essential (primary) hypertension; E11.9 Type 2 diabetes mellitus without complications; I48.91 Unspecified atrial fibrillation; Z90.89 Acquired absence of other organs; Z90.49 Acquired absence of other specified parts of digestive tract; Z98.890 Other specified postprocedural states; Z87.891 Personal history of nicotine dependence; Z88.1 Allergy status to other antibiotic agents

== ENCOUNTER 2022-12-09 14:48 | Emergency (ER) | payer MEDICARE ==
[~2022-12-09] VITALS: Wt 103.2 kg
[2022-12-09 15:26] LABS: BASO % 0.4 % (0.0-1.0); EOS # 0.2 10*3/uL (0.0-0.4); EOS % 2.3 % (1.0-4.0); LYMPH # 1.3 10*3/uL (1.3-4.4); LYMPH % 15.8 % (27.0-41.0); MEAN CELL VOLUME 95.6 fl (80.0-94.0); MEAN CORPUSCULAR HGB 30.5 pg (27.0-31.0); MEAN CORPUSCULAR HGB CONC 31.9 g/dl (33.0-37.0); MEAN PLATELET VOLUME 10.5 fl (9.6-12.3); MONO # 0.9 10*3/uL (0.1-1.0); MONO % 10.4 % (3.0-9.0); NEUT # 5.7 10*3/uL (2.3-7.9); NEUT % 70.2 % (47.0-73.0); PLATELET COUNT AUTOMATED 248 10*3/uL (130-400); RED BLOOD COUNT 3.87 10*6/uL (4.50-5.90); RED CELL DISTRI WIDTH 15.8 % (0-14.5); WHITE BLOOD COUNT 8.2 10*3/uL (4.8-10.8)
[2022-12-09 15:55] LABS: ALKALINE PHOSPHATASE 112 U/L (46-116); BUN 36 mg/dl (9-23); CHLORIDE 97 mmol/L (98-107); LIPASE 110 U/L (12-53); POTASSIUM 4.3 mmol/L (3.4-5.1); SGPT/ALT 13 U/L (10-49); TOTAL PROTEIN 6.9 gm/dL (6.0-8.0)
[2022-12-09 16:26] LABS: ACT PARTIAL THROMBO TIME 29.6 SECONDS (20.0-32.1); INTERNATIONAL NORM RATIO 1.1 (2.0-3.5)
[2022-12-09 18:54] LABS: BILIRUBIN Negative (Negative); BLOOD Trace-Intact (Negative); CLARITY Cloudy (Clear); COLOR Yellow (Yellow); GLUCOSE Negative (Negative); KETONE Negative (Negative); LEUKO ESTERASE 2+ (Negative); NITRITE Negative (Negative); PH 6.5 (4.5-8.0)
[2022-12-09 19:09] LABS: BACTERIA 2+
== END 2022-12-09 19:54 ==
LOC: ED 14:48
PROVIDERS: Emergency Medicine
DX: S00.83XA Contusion of other part of head, initial encounter (principal); M54.2 Cervicalgia; I10 Essential (primary) hypertension; E11.9 Type 2 diabetes mellitus without complications; I48.91 Unspecified atrial fibrillation; Z88.1 Allergy status to other antibiotic agents; Z90.49 Acquired absence of other specified parts of digestive tract; Z90.89 Acquired absence of other organs; Z98.890 Other specified postprocedural states; Z87.891 Personal history of nicotine dependence; Z79.899 Other long term (current) drug therapy; W19.XXXA Unspecified fall, initial encounter; Y93.89 Activity, other specified; Y92.129 Unspecified place in nursing home as the place of occurrence of the external cause; Y99.8 Other external cause status

== ENCOUNTER 2022-12-25 01:21 | Emergency (ER) | payer MEDICARE | END 2022-12-25 01:38 | LOC: ED 01:21 | DX: Z43.1 Encounter for attention to gastrostomy (principal); Z88.1 Allergy status to other antibiotic agents; Z79.899 Other long term (current) drug therapy; Z98.890 Other specified postprocedural states; Z90.49 Acquired absence of other specified parts of digestive tract; Z90.89 Acquired absence of other organs; Z87.891 Personal history of nicotine dependence ==

== ENCOUNTER 2023-02-20 14:23 | Emergency (ER) | payer MEDICARE ==
[~2023-02-20] VITALS: Ht 180.3 cm
[2023-02-20 15:06] LABS: BASO % 0.4 % (0.0-1.0); EOS # 0.2 10*3/uL (0.0-0.4); EOS % 2.1 % (1.0-4.0); HEMATOCRIT 34.2 % (42.0-52.0); LYMPH # 1.8 10*3/uL (1.3-4.4); LYMPH % 23.5 % (27.0-41.0); MEAN CELL VOLUME 97.4 fl (80.0-94.0); MEAN CORPUSCULAR HGB 31.6 pg (27.0-31.0); MEAN CORPUSCULAR HGB CONC 32.5 g/dl (33.0-37.0); MEAN PLATELET VOLUME 10.4 fl (9.6-12.3); MONO # 0.6 10*3/uL (0.1-1.0); MONO % 8.2 % (3.0-9.0); NEUT # 4.9 10*3/uL (2.3-7.9); NEUT % 64.1 % (47.0-73.0); PLATELET COUNT AUTOMATED 307 10*3/uL (130-400); RED BLOOD COUNT 3.51 10*6/uL (4.50-5.90); RED CELL DISTRI WIDTH 14.9 % (0-14.5); WHITE BLOOD COUNT 7.6 10*3/uL (4.8-10.8)
[2023-02-20 15:44] LABS: BILIRUBIN Negative (Negative); BLOOD Negative (Negative); CLARITY Clear (Clear); COLOR Yellow (Yellow); GLUCOSE Negative (Negative); KETONE Negative (Negative); LEUKO ESTERASE Trace (Negative); NITRITE Negative (Negative); PH 6.5 (4.5-8.0)
[2023-02-20 16:08] LABS: BACTERIA 1+; EPITHELIAL CELLS 0-2; WBC 0-2 wbc/hpf (0-5)
[2023-02-20 16:10] LABS: ALKALINE PHOSPHATASE 108 U/L (46-116); BUN 23 mg/dl (9-23); CHLORIDE 102 mmol/L (98-107); POTASSIUM 4.4 mmol/L (3.4-5.1); TOTAL PROTEIN 6.2 gm/dL (6.0-8.0)
[2023-02-20 16:11] LABS: SGPT/ALT < 7 U/L (10-49)
== END 2023-02-20 19:18 ==
LOC: ED 14:23
PROVIDERS: Internal Medicine
DX: N17.9 Acute kidney failure, unspecified (principal); R51.9 Headache, unspecified; R13.10 Dysphagia, unspecified; I10 Essential (primary) hypertension; E11.9 Type 2 diabetes mellitus without complications; I48.91 Unspecified atrial fibrillation; Z88.1 Allergy status to other antibiotic agents; Z90.89 Acquired absence of other organs; Z90.49 Acquired absence of other specified parts of digestive tract; Z98.890 Other specified postprocedural states; Z79.899 Other long term (current) drug therapy

== ENCOUNTER 2023-04-30 15:19 | Emergency (ER) | payer MEDICARE ==
[2023-04-30 16:43] LABS: BASO # 0.1 10*3/uL (0.0-0.1); BASO % 0.5 % (0.0-1.0); EOS # 0.2 10*3/uL (0.0-0.4); EOS % 2.1 % (1.0-4.0); HEMATOCRIT 32.8 % (42.0-52.0); LYMPH # 1.3 10*3/uL (1.3-4.4); LYMPH % 13.4 % (27.0-41.0); MEAN CELL VOLUME 96.8 fl (80.0-94.0); MEAN CORPUSCULAR HGB 29.8 pg (27.0-31.0); MEAN CORPUSCULAR HGB CONC 30.8 g/dl (33.0-37.0); MEAN PLATELET VOLUME 10.2 fl (9.6-12.3); MONO # 1.1 10*3/uL (0.1-1.0); MONO % 11.9 % (3.0-9.0); NEUT # 6.6 10*3/uL (2.3-7.9); NEUT % 70.1 % (47.0-73.0); PLATELET COUNT AUTOMATED 318 10*3/uL (130-400); RED BLOOD COUNT 3.39 10*6/uL (4.50-5.90); RED CELL DISTRI WIDTH 15.3 % (0-14.5); WHITE BLOOD COUNT 9.5 10*3/uL (4.8-10.8)
[2023-04-30 17:04] LABS: ALKALINE PHOSPHATASE 125 U/L (46-116); BUN 15 mg/dl (9-23); CHLORIDE 104 mmol/L (98-107); POTASSIUM 3.8 mmol/L (3.4-5.1); SGPT/ALT < 7 U/L (10-49); TOTAL PROTEIN 6.2 gm/dL (6.0-8.0)
== END 2023-04-30 17:49 | disposition home or self-care (01) ==
LOC: ED 15:19
PROVIDERS: Internal Medicine
DX: E86.0 Dehydration (principal); I10 Essential (primary) hypertension; E11.9 Type 2 diabetes mellitus without complications; I48.91 Unspecified atrial fibrillation; Z88.1 Allergy status to other antibiotic agents; Z98.890 Other specified postprocedural states; Z90.49 Acquired absence of other specified parts of digestive tract; Z95.5 Presence of coronary angioplasty implant and graft; Z90.89 Acquired absence of other organs; F17.200 Nicotine dependence, unspecified, uncomplicated

== ENCOUNTER → 2023-05-06 | Outpatient (CLI) | payer MEDICARE | END | disposition home or self-care (01) | LOC: CT 05-05 11:00 | PROVIDERS: ATTEND Internal Medicine | DX: K57.32 Diverticulitis of large intestine without perforation or abscess without bleeding (principal); N21.0 Calculus in bladder; N20.0 Calculus of kidney; N28.1 Cyst of kidney, acquired; J98.11 Atelectasis; Z90.49 Acquired absence of other specified parts of digestive tract ==

== ENCOUNTER 2023-06-12 03:56 | Emergency (ER) | payer MEDICARE ==
[~2023-06-12] VITALS: Wt 83.9 kg
== END 2023-06-12 08:26 ==
LOC: ED 03:56
DX: M79.10 Myalgia, unspecified site (principal); F03.90 Unspecified dementia, unspecified severity, without behavioral disturbance, psychotic disturbance, mood disturbance, and anxiety; I10 Essential (primary) hypertension; E11.9 Type 2 diabetes mellitus without complications; I48.91 Unspecified atrial fibrillation; Z88.1 Allergy status to other antibiotic agents; Z90.49 Acquired absence of other specified parts of digestive tract; Z95.5 Presence of coronary angioplasty implant and graft; Z90.89 Acquired absence of other organs; Z98.890 Other specified postprocedural states; Z87.891 Personal history of nicotine dependence

== ENCOUNTER 2023-06-24 23:25 | Emergency (ER) | payer MEDICARE ==
[~2023-06-24] VITALS: Ht 182.8 cm; Wt 108.9 kg
== END 2023-06-25 01:41 ==
LOC: ED 23:25
DX: R51.9 Headache, unspecified (principal); I48.91 Unspecified atrial fibrillation; Z88.1 Allergy status to other antibiotic agents; Z79.899 Other long term (current) drug therapy; Z79.82 Long term (current) use of aspirin; Z98.890 Other specified postprocedural states; Z90.49 Acquired absence of other specified parts of digestive tract; Z95.0 Presence of cardiac pacemaker; W19.XXXA Unspecified fall, initial encounter; Y93.89 Activity, other specified; Y92.89 Other specified places as the place of occurrence of the external cause; Y99.8 Other external cause status

== ENCOUNTER 2023-10-31 18:02 | Emergency (ER) | payer MEDICARE ==
[~2023-10-31] VITALS: Ht 177.8 cm
[2023-10-31] MEDS ORDERED: Metoprolol Tartrate 5 MG/5 ML VIAL IV ONE ×2 (18:10→18:15)
[2023-10-31 18:39] LABS: BASO % 0.6 % (0.0-1.0); EOS # 0.2 10*3/uL (0.0-0.4); EOS % 2.2 % (1.0-4.0); HEMATOCRIT 33.1 % (42.0-52.0); LYMPH # 1.8 10*3/uL (1.3-4.4); LYMPH % 25.2 % (27.0-41.0); MEAN CELL VOLUME 97.9 fl (80.0-94.0); MEAN CORPUSCULAR HGB 29.9 pg (27.0-31.0); MEAN CORPUSCULAR HGB CONC 30.5 g/dl (33.0-37.0); MEAN PLATELET VOLUME 10.7 fl (9.6-12.3); MONO # 0.8 10*3/uL (0.1-1.0); MONO % 11.3 % (3.0-9.0); NEUT # 4.3 10*3/uL (2.3-7.9); NEUT % 59.9 % (47.0-73.0); PLATELET COUNT AUTOMATED 218 10*3/uL (130-400); RED BLOOD COUNT 3.38 10*6/uL (4.50-5.90); RED CELL DISTRI WIDTH 15.9 % (0-14.5); WHITE BLOOD COUNT 7.3 10*3/uL (4.8-10.8)
[2023-10-31 18:53] LABS: ACT PARTIAL THROMBO TIME 27.5 SECONDS (20.0-32.1)
[2023-10-31 18:59] LABS: ALKALINE PHOSPHATASE 83 U/L (46-116); BUN 13 mg/dl (9-23); CHLORIDE 108 mmol/L (98-107); LIPASE 37 U/L (12-53); POTASSIUM 3.9 mmol/L (3.4-5.1); SGPT/ALT 7 U/L (5-49); TOTAL PROTEIN 6.4 gm/dL (6.0-8.0)
[2023-10-31] MEDS ORDERED: Diltiazem Hydrochloride 25 MG/5 ML VIAL IV ONE (19:25)
[2023-10-31] MEDS ORDERED: DIGOXIN 500 MCG/2 ML AMP IV ONE ×2 (20:00→20:05)
[2023-10-31] MEDS ORDERED: Diltiazem Hydrochloride 125 ML IV SCH (20:50)
[2023-10-31] MEDS ORDERED: METOPROLOL SUCC50 M1 PO (22:45)
== END 2023-10-31 23:31 ==
LOC: ED 18:02
PROVIDERS: Emergency Medicine
DX: I48.20 Chronic atrial fibrillation, unspecified (principal); R06.02 Shortness of breath; R05.9 Cough, unspecified; E11.9 Type 2 diabetes mellitus without complications; I11.0 Hypertensive heart disease with heart failure; I50.9 Heart failure, unspecified; E78.5 Hyperlipidemia, unspecified; M79.89 Other specified soft tissue disorders; Z88.1 Allergy status to other antibiotic agents; Z79.899 Other long term (current) drug therapy; Z79.82 Long term (current) use of aspirin; Z98.890 Other specified postprocedural states; Z90.49 Acquired absence of other specified parts of digestive tract; Z95.0 Presence of cardiac pacemaker; Z90.89 Acquired absence of other organs; Z87.891 Personal history of nicotine dependence